=== PATIENT | female | born 1965 | race Caucasian/White ===

== ENCOUNTER 2016-11-23 11:53 | Emergency (ER) | payer OTHER ==
[~2016-11-23] VITALS: Ht 154.9 cm; Wt 57.5 kg
[2016-11-23 12:01] VITALS: Ht 154.9 cm; Wt 57.5 kg
[2016-11-23] MEDS ORDERED: ASPIRIN 325 MG TAB PO STA (12:08)
--- NOTE | 2016-11-23 12:33 | ERA ---
ER Documentation Chief Complaint Date/Time DATE: 11/23/16 TIME: 12:31 Chief Complaint BIB FAMILY CP SINCE YESTERDAY NON RADIATING. DENIES SOB/N/V/DIZZINESS HPI This 51-year-old female comes in with her complaining of chest pain that began yesterday. The pain is in her left breast and chest. She denies any associated symptoms such as shortness of breath nausea vomiting. She believes she feels a lump in her left breast. Denies fever and chills. Is notably tachycardic in the emergency room. ROS All systems reviewed and are negative except as per history of present illness. Medications Home Meds No Active Prescriptions or Reported Meds Allergies Allergies: Coded Allergies: No Known Allergy (Unverified , 11/23/16) Physical Exam Vitals Vital Signs Date Time Temp Pulse Resp B/P Pulse Ox O2 Delivery O2 Flow Rate FiO2 11/23/16 17:49 98.6 105 18 130/82 100 Room Air 11/23/16 15:39 98.6 118 16 125/88 100 Room Air 11/23/16 13:13 98.7 120 14 140/80 100 Room Air 11/23/16 12:01 98.6 118 20 133/75 98 Physical Exam Const: [] Mild distress, appears uncomfortable Head: Atraumatic Eyes: Normal Conjunctiva ENT: Normal External Ears, Nose and Mouth. Neck: Full range of motion..~ No meningismus. Resp: Clear to auscultation bilaterally Cardio: Regular tachycardia, no murmurs Abd: Soft, non tender, non distended. Normal bowel sounds Skin: No petechiae or rashes Back: No midline or flank tenderness Ext: No cyanosis, or edema, distal pulses intact all 4 extremities. Patient refuses breast exam from male. There are currently no female physicians working per Neur: Awake and alert Psych: Normal Mood and Affect Result Diagram: 11/23/16 1225 11/23/16 1225 Results 24 hrs Laboratory Tests Test 11/23/16 12:25 11/23/16 15:00 White Blood Count 11.110^3/ul Red Blood Count 4.6810^6/ul Hemoglobin 9.9g/dl Hematocrit 34.3% Mean Corpuscular Volume 73.3fl Mean Corpuscular Hemoglobin 21.2pg Mean Corpuscular Hemoglobin Concent 28.9g/dl Red Cell Distribution Width 16.2% Platelet Count 75135^3/UL Mean Platelet Volume 13.0fl Neutrophils % 77.4% Lymphocytes % 14.4% Monocytes % 6.6% Eosinophils % 0.5% Basophils % 0.5% Nucleated Red Blood Cells % 0.0/100WBC Neutrophils # 8.610^3/ul Lymphocytes # 1.610^3/ul Monocytes # 0.710^3/ul Eosinophils # 0.110^3/ul Basophils # 0.110^3/ul Nucleated Red Blood Cells # 0.010^3/ul Prothrombin Time 13.4Sec Prothrombin Time Ratio 1.0 INR International Normalized Ratio 1.02 Activated Partial Thromboplast Time 31.4Sec Sodium Level 144mmol/L Potassium Level 4.0mmol/L Chloride Level 103mmol/L Carbon Dioxide Level 24mmol/L Anion Gap 21 Blood Urea Nitrogen 9mg/dl Creatinine 0.75mg/dl Glucose Level 127mg/dl Calcium Level 10.1mg/dl Troponin I < 0.012ng/ml Urine Color YELLOW Urine Clarity CLEAR Urine pH 5.0 Urine Specific [place] 1.010 Urine Ketones NEGATIVEmg/dL Urine Nitrite NEGATIVEmg/dL Urine Bilirubin NEGATIVEmg/dL Urine Urobilinogen NEGATIVEmg/dL Urine Leukocyte Esterase NEGATIVELeu/ul Urine Microscopic RBC 1/HPF Urine Microscopic WBC 0/HPF Urine Hemoglobin 1+mg/dL Urine Glucose NEGATIVEmg/dL Urine Total Protein NEGATIVEmg/dl Current Medications Medications (Trade) Dose Ordered Sig/Grace Route PRN Reason Start Time Stop Time Status Last Admin Dose Admin Aspirin (Aspirin) 325 mg ONCE STAT PO 11/23/16 12:08 11/23/16 12:10 DC 11/23/16 13:08 IV Flush 10 ml 10 ml STK-MED ONCE .ROUTE 11/23/16 15:38 11/23/16 15:39 DC 11/23/16 16:16 Sodium Chloride 100 ml @ ud STK-MED ONCE .ROUTE 11/23/16 15:38 11/23/16 15:39 DC 11/23/16 16:16 Iohexol (Omnipaque) 100 ml @ ud STK-MED ONCE .ROUTE 11/23/16 15:38 11/23/16 15:39 DC 11/23/16 16:16 Iohexol 50 ml 50 ml STK-MED ONCE .ROUTE 11/23/16 15:38 11/23/16 15:39 DC Sodium Chloride (NS) 1,000 ml @ 1,000 mls/hr Q1H ONCE IV 11/23/16 17:00 11/23/16 17:59 DC Ondansetron HCl (Zofran Inj) 4 mg ER BRIDGE PRN IV NAUSEA AND/OR VOMITING 11/23/16 17:30 11/24/16 17:29 Acetaminophen (Tylenol Tab) 650 mg ER BRIDGE PRN PO MILD PAIN/FEVER 11/23/16 17:30 11/24/16 17:29 IV Flush (NS 3 ml) 3 ml PER PROTOCOL IV 11/23/16 18:00 Ondansetron HCl (Zofran Inj) 4 mg Q6H PRN IV NAUSEA AND/OR VOMITING 11/23/16 18:00 Acetaminophen (Tylenol Tab) 650 mg Q6H PRN PO PAIN LEVEL 1-3 OR FEVER 11/23/16 18:00 Acetaminophen/ Hydrocodone Bitart ([place] (5/325)) 1 tab Q6H PRN PO MODERATE PAIN LEVEL 4-6 11/23/16 18:00 Morphine Sulfate (morphine) 2 mg Q4H PRN IV SEVERE PAIN LEVEL 7-10 11/23/16 18:00 Docusate Sodium (Colace) 100 mg Q12H PRN PO CONSTIPATION 11/23/16 18:00 Magnesium Hydroxide (Milk Of Mag) 30 ml DAILY PRN PO CONSTIPATION 11/23/16 18:00 Sodium Biphosphate/ Sodium Phosphate (Fleet Enema) 133 ml DAILY PRN PA CONSTIPATION 11/23/16 18:00 Pantoprazole (Protonix Tab) 40 mg DAILY@06 PO 11/24/16 06:00 Heparin Sodium (Porcine) 5000 unit 5,000 unit Q12 SC 11/23/16 21:00 Sodium Chloride (1/2 NS) 1,000 ml @ 75 mls/hr [id number] IV 11/23/16 17:55 Lorazepam (Ativan) 0.5 mg Q6H PRN PO ANXIETY 11/23/16 18:00 Albuterol/ Ipratropium (Duoneb) 3 ml Q4H RESP THERAPY PRN HHN SHORTNESS OF BREATH 11/23/16 18:00 Hydralazine HCl (Apresoline) 10 mg Q6H PRN IV ELEVATED BLOOD PRESSURE 11/23/16 18:00 Clonidine (Catapres) 0.1 mg Q6H PRN PO ELEVATED BLOOD PRESSURE 11/23/16 18:00 Nitroglycerin (Nitroglycerin (Sl Tab) 0.4 Mg) 1 tab Q5M PRN SL ANGINA 11/23/16 18:00 Aspirin (Ecotrin) 325 mg DAILY PO 11/24/16 09:00 Procedures/MDM Chest pain with persistent tachycardia. This did improve fluid administration however I did recommend admission. Patient Doug had a bed went several family members including employee of this hospital decided that they prefer to leave AGAINST MEDICAL ADVICE and follow-up with the primary care doctor tomorrow. She was given 325 mg aspirin and a liter of normal saline in the emergency room. She did have a very slightly elevated white blood cell count with no signs of infection whatsoever. Only symptom was chest pain. She had been admitted to Dr. Buenrostro. EKG interpretation: Sinus tachycardia rate of 120, left axis deviation, no ST or T-wave changes concerning for acute ischemia, normal intervals. cardiac monitor interpretation: Persistent sinus tachycardia improved with IV fluid administration Chest x-ray interpretation: I see no acute process. I see no widened mediastinum, no pneumothorax, no infiltrates, no pulmonary edema, no fractures Breast ultrasound interpretation: Normal appearance of breast. I see no fluid collections or abnormal masses peer Departure Diagnosis: Primary Impression: Chest pain Additional Impression: Anemia Condition: Stable TYSONMATT Nov 23, 2016 12:33
[2016-11-23 12:38] LABS: ADD SCAN DIFF NO
[2016-11-23 12:40] LABS: ABNORMAL IP MESSAGE 1; BASOPHIL # 0.1 10^3/ul (0.0-0.1); BASOPHILS % 0.5 % (0.0-2.0); EOSINOPHILS # 0.1 10^3/ul (0.0-0.5); EOSINOPHILS % 0.5 % (0.0-7.0); HEMATOCRIT 34.3 % (37.0-47.0); HEMOGLOBIN 9.9 g/dl (12.0-16.0); LYMPHOCYTES # 1.6 10^3/ul (0.8-2.9); LYMPHOCYTES % 14.4 % (15.0-51.0); MEAN CORPUSCULAR HEMOGLOBIN 21.2 pg (29.0-33.0); MEAN CORPUSCULAR HGB CONC 28.9 g/dl (32.0-37.0); MEAN CORPUSCULAR VOLUME 73.3 fl (82.0-101.0); MONOCYTE # 0.7 10^3/ul (0.3-0.9); MONOCYTES % 6.6 % (0.0-11.0); NEUTROPHIL # 8.6 10^3/ul (1.6-7.5); NEUTROPHILS % 77.4 % (39.0-77.0); PLATELET COUNT 206 10^3/UL (140-415); RED BLOOD COUNT 4.68 10^6/ul (4.20-5.40); RED CELL DISTRIBUTION WIDTH 16.2 % (11.5-14.5); WHITE BLOOD COUNT 11.1 10^3/ul (4.8-10.8)
[2016-11-23 12:56] LABS: INR 1.02; PROTIME 13.4 Sec (12.2-14.2)
[2016-11-23 12:57] LABS: PARTIAL THROMBOPLASTIN TIME 31.4 Sec (25.0-35.0)
--- NOTE | 2016-11-23 12:57 | RADRPT ---
PROCEDURE: Chest Radiograph. CLINICAL INDICATION: Chest pain TECHNIQUE: Single frontal chest radiograph. COMPARISON: None available FINDINGS: The cardiomediastinal silhouette is within normal limits. No infiltrate or effusion is seen. Th e bones are intact. IMPRESSION: 1. Unremarkable chest radiograph. RPTAT: AA .Matt Mccloud MD, MD Date Time Electronically viewed and signed by .Matt Mccloud MD, on 11/23/2016 12:56 .B/
[2016-11-23 12:58] LABS: ANION GAP 21 (8-16); BLOOD UREA NITROGEN 9 mg/dl (7-20); CALCIUM 10.1 mg/dl (8.4-10.2); CARBON DIOXIDE 24 mmol/L (21-31); CHLORIDE 103 mmol/L (97-110); CREATININE 0.75 mg/dl (0.44-1.00); GLUCOSE 127 mg/dl (70-220); SODIUM 144 mmol/L (135-144)
[2016-11-23 13:21] LABS: TROPONIN-I < 0.012 ng/ml (0.00-0.12)
--- NOTE | 2016-11-23 13:35 | RADRPT ---
PROCEDURE: Left breast ultrasound. CLINICAL INDICATION: Left breast pain and tenderness TECHNIQUE: Left whole breast, 4 quadrant and retroareolar, and axillary sonography was performed. COMPARISON: None FINDINGS: No solid or suspicious masses. No areas of architectural distortion. No malignant adenopathy. Scattered cysts are present in the left breast, sub centimeter in size at the 3 o'clock and 5 o'cloc k position IMPRESSION: 1. No sonographic findings of malignancy. 2. Recommend the patient return for routine annual screening mammogram unless there are new clinica l findings in the interim. BI-RADS 2: BENIGN RPTAT: EE .Ruslan Grover MD, MD Date Time Electronically viewed and signed by .Ruslan Grover MD, on 11/23/2016 13:34 .Yogesh/
[2016-11-23] MEDS ORDERED: IOHEXOL 100 ML ONE (15:38)
[2016-11-23] MEDS ORDERED: SOD CHLORIDE 0.9% 100 ML ONE (15:38)
[2016-11-23] MEDS ORDERED: IOHEXOL 350MG/ML 50 ML BTL ONE (15:38)
[2016-11-23 15:48] LABS: ADD UMIC YES; UR ASCORBIC ACID NEGATIVE (NEGATIVE); UR BILIRUBIN (Dip) NEGATIVE (NEGATIVE); UR BLOOD (Dip) 1+ mg/dL (NEGATIVE); UR CLARITY CLEAR (CLEAR); UR COLOR YELLOW (YELLOW); UR GLUCOSE (Dip) NEGATIVE (NEGATIVE); UR KETONES (Dip) NEGATIVE (NEGATIVE); UR LEUKOCYTE ESTERASE (Dip) NEGATIVE Leu/ul (NEGATIVE); UR NITRITE (Dip) NEGATIVE (NEGATIVE); UR RBC 1 /HPF (0-5); UR TOTAL PROTEIN (Dip) NEGATIVE (NEGATIVE); UR UROBILINOGEN (Dip) NEGATIVE (NEGATIVE)
--- NOTE | 2016-11-23 16:27 | RADRPT ---
PROCEDURE: CTA Chest with contrast and with 3-D reconstructions CLINICAL INDICATION: cp, tachy TECHNIQUE: The study was performed utilizing multidetector CT scanner. Direct spiral axial section s were obtained from the thoracic inlet to the upper abdomen with the use of intravenous contrast ma terial. Sagittal, coronal and 3-D reformations were obtained. The images were reviewed on a PACS wor kstation. DLP 278.70 mGycm CTDIvol 1.76, 10.56, 7.95 mGy One or more of the following dose reduction techniques were used: - Automated exposure control. - Adjustment of the mA and/or kV according to patient size. - Use of iterative reconstruction technique. COMPARISON: No prior studies are available for comparison. FINDINGS: There are no pulmonary emboli. The lungs are clear. There is no pleural fluid. There is no pneumothorax. Heart size is within normal limits. There is no pericardial fluid. The aorta is within normal limi ts. There are no enlarged axillary or mediastinal lymph nodes. There is cholelithiasis. Osseous and soft tissue structures are within normal limits. IMPRESSION: No CT evidence for pulmonary embolus. Clear lungs. Cholelithiasis. RPTAT: EE Physician Alok Date Time Electronically viewed and signed by Physician Alok on 11/23/2016 16:27 /
[2016-11-23] MEDS ORDERED: SOD CHLORIDE 0.9% 1,000 ML IV ONE (17:00)
[2016-11-23] MEDS ORDERED: ACETAMINOPHEN 325 MG TAB PO PRN ×2 (17:30→18:00)
[2016-11-23] MEDS ORDERED: ONDANSETRON 4 MG INJ IV PRN ×2 (17:30→18:00)
[2016-11-23 17:49] VITALS: TEMP 98.6
[2016-11-23] MEDS ORDERED: SOD CHLORIDE 0.45% 1,000 ML IV SCH (17:55)
[2016-11-23] MEDS ORDERED: NITROGLYCERIN (SL) 0.4 MG TAB SL PRN (18:00)
[2016-11-23] MEDS ORDERED: NA PHOSPHATE/BIPHOS 133 ML ENEMA PR PRN (18:00)
[2016-11-23] MEDS ORDERED: HYDROCODONE/APAP (5/325) TAB PO PRN (18:00)
[2016-11-23] MEDS ORDERED: morphine 2 MG INJ IV PRN (18:00)
[2016-11-23] MEDS ORDERED: NACL 0.9% 3 ML SYG IV SCH (18:00)
[2016-11-23] MEDS ORDERED: LORAZEPAM 0.5 MG TAB PO PRN (18:00)
[2016-11-23] MEDS ORDERED: ALBUTEROL/IPRATROPIUM (NEB) 3 ML AMP HHN PRN (18:00)
[2016-11-23] MEDS ORDERED: DOCUSATE SODIUM 100 MG CAP PO PRN (18:00)
[2016-11-23] MEDS ORDERED: MAGNESIUM HYDROXIDE 30ML CUP PO PRN (18:00)
[2016-11-23] MEDS ORDERED: hydrALAzine 20 MG INJ IV PRN (18:00)
[2016-11-23 18:23] VITALS: BP 117/78; PULSE 110; RESP 20
[2016-11-23] MEDS ORDERED: HEPARIN 5,000 UNIT/0.5 ML VIAL SC SCH (21:00)
[2016-11-24] MEDS ORDERED: PANTOPRAZOLE (EC) 40 MG TAB PO SCH (06:00)
[2016-11-24] MEDS ORDERED: ASPIRIN (EC) 325 MG TAB PO SCH (09:00)
== END 2016-11-23 18:26 | disposition left against medical advice (07) ==
LOC: E/R 11:53
DX: R07.9 Chest pain, unspecified (principal); D64.9 Anemia, unspecified
CPT/HCPCS: 36415; 71010; 71275; 76642; 80048; 81001; 84439; 84484; 85025; 85610; 85730; 93005; J7030; Q9967; Z7502; Z7610